=== PATIENT | male | born 1970 ===

== ENCOUNTER 2019-03-28 16:24 | Emergency (ER) | payer SELFPAY ==
[~2019-03-28] VITALS: Ht 177.8 cm; Wt 145.0 kg
[2019-03-28] MEDS ORDERED: CLONIDINE 0.1MG TABLET PO ONE (17:45)
[2019-03-28 18:12] VITALS: BP 169/98
== END 2019-03-28 18:14 | disposition home or self-care (01) ==
LOC: ER 16:24
DX: I86.8 Varicose veins of other specified sites (principal); I10 Essential (primary) hypertension
CPT/HCPCS: 99283; Z7610